=== PATIENT | female | born 1965 | race Caucasian/White ===

== ENCOUNTER → 2017-05-20 | Outpatient (CLI) | payer BC ==
[~2017-05-20] MED LIST: GADOBUTROL 10 ML VIAL IVP ONE
== END ==
LOC: FIMAGING 07:01
PROVIDERS: ATTEND Specialist
DX: Z98.82 Breast implant status (principal)
CPT/HCPCS: 0159T; 77059; A9585; C8907

== ENCOUNTER → 2017-12-07 | Outpatient (CLI) | payer BC | LOC: FIMAGING 16:55 | PROVIDERS: ATTEND Internal Medicine | DX: R42 Dizziness and giddiness (principal); R41.89 Other symptoms and signs involving cognitive functions and awareness ==

== ENCOUNTER → 2018-03-21 | Outpatient (CLI) | payer BC | LOC: FIMAGING 10:59 | PROVIDERS: ATTEND Nurse Practitioner | DX: R59.9 Enlarged lymph nodes, unspecified (principal); Z85.3 Personal history of malignant neoplasm of breast; Z90.10 Acquired absence of unspecified breast and nipple ==